=== PATIENT | female | born 1935 | race Caucasian/White ===

== ENCOUNTER 2016-12-29 09:25 | Emergency (ER) | payer OTHER ==
[2016-12-29 09:30] VITALS: BMI 29.9
--- NOTE | 2016-12-29 09:50 | PDOC ---
History of Present Illness - General History Source: Patient Exam Limitations: No Limitations <GomezShmuel whipplean - Last Filed: 12/29/16 16:23> - General History Source: Patient Exam Limitations: No Limitations <Miesha Salazar - Last Filed: 12/29/16 18:38> - General Chief Complaint: Chest Pain Stated Complaint: CHEST PRESSURE, SOB Time Seen by Provider: 12/29/16 09:38 - History of Present Illness Initial Comments: 12/29/16 11:10 The patient is a 81 year old female, with a significant past medical history of hypertension, hyperlipidemia, and GERD, who presents to the emergency department complaining of intermittent chest pain and shortness of breath for several weeks. The patient states her chest has felt heavy, similar to a pressure for the past couple of weeks. She reports associated shortness of breath which is exacerbated with exertion. Patient reports her chest pain and sob is alleviated when sitting down. She reports an associated non productive cough, which is chronic, but has been worsening. 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 She states she has noted her legs are increasingly weak. She denies any diaphoresis, n/v, palpitations, or lower extremity edema. She denies any fever, chills, headache, or dizziness. 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 She denies any recent travel or sick contacts. Allergies: Amlodipine besylate[From Hero]. Ampicillin, Diltiazem, Fluconazole, Hydrochlorothiazide, Latex, Levofloxacin[From Levaquin], Metronidazole, naproxen , nitrofurantoin, olmesartan medoxomil[From Hero], Penicillins, Tetracyclines Past Surgical History: None reported. Social History: Occasional ETOH use. Non smoker. No recreational drug use. PCP: Dr. Nunez Educational Program Assistant: Dr. Hankins (Miesha Salazar) Past History - Past Medical History HTN: Yes Hypercholesterolemia: Yes - Psycho/Social/Smoking Cessation Hx Suicidal Ideation: No Smoking History: Never smoked Hx Alcohol Use: Yes (SOCIAL) Drug/Substance Use Hx: No Substance Use Type: None <Epifanio Dyer - Last Filed: 12/29/16 16:23> <Miesha Salazar - Last Filed: 12/29/16 18:38> - Past Medical History Allergies/Adverse Reactions: Allergies Allergy/AdvReac Type Severity Reaction Status Date / Time amlodipine besylate Allergy Rash Verified 12/29/16 09:31 [From Hero] ampicillin Allergy Rash Verified 12/29/16 09:30 diltiazem Allergy Rash Verified 12/29/16 09:31 fluconazole Allergy Rash Verified 12/29/16 09:32 hydrochlorothiazide Allergy Rash Verified 12/29/16 09:32 latex Allergy Rash Verified 12/29/16 09:33 levofloxacin [From Levaquin] Allergy Rash Verified 12/29/16 09:33 metronidazole Allergy Rash Verified 12/29/16 09:33 naproxen Allergy Rash Verified 12/29/16 09:34 nitrofurantoin Allergy Rash Verified 12/29/16 09:34 olmesartan medoxomil Allergy Rash Verified 12/29/16 09:31 [From Hero] Penicillins Allergy Rash Verified 12/29/16 09:34 Tetracyclines Allergy Rash Verified 12/29/16 09:35 DEMARLO EITHER Allergy Uncoded 12/29/16 09:31 Home Medications: Ambulatory Orders Losartan Potassium 100 mg PO DAILY 12/29/16 Ranitidine [Zantac -] 150 mg PO BID 12/29/16 Review of Systems <Epifanio Dyer - Last Filed: 12/29/16 16:23> - Review of Systems Able to Perform ROS?: Yes <Miesha Salazar - Last Filed: 12/29/16 18:38> - Review of Systems Comments:: 12/29/16 11:10 CONSTITUTIONAL: Yes: +generally weak No reported: Fever, Chills, Diaphoresis, Malaise, Loss of Appetite HEENT: No reported: Rhinorrhea, Nasal Congestion, Throat Pain, Throat Swelling, Difficulty Swallowing, Mouth Swelling, Ear Pain, Eye Pain, Visual Changes CARDIOVASCULAR: Yes: +chest pain No reported: Syncope, Palpitations, Irregular Heart Rate, Lightheadedness, Peripheral Edema RESPIRATORY: Yes: +Cough, +Shortness of Breath, SOB with exertion, +wheezing. No reported: Orthopnea, Stridor, Hemoptysis GASTROINTESTINAL: No reported: Abdominal pain, Abdominal Distension, Nausea, Vomiting, Diarrhea, Constipation, Melena, Hematochezia GENITOURINARY: No reported: Dysuria, Frequency, Urgency, Hesitancy, Flank Pain, Genital Pain MUSCULOSKELETAL: No reported: Myalgia, Arthralgia, Joint Swelling, Back pain, Neck Pain SKIN: No reported: Rash, Itching, Pallor HEMATOLOGIC/IMMUNOLOGIC: No reported: Easy Bleeding, Easy Bruising, Lymphadenopathy, Frequent infections ENDOCRINE: No reported: Unexplained Weight Gain, Unexplained Weight Loss, Heat Intolerance , Cold Intolerance NEUROLOGIC: No reported: Headache, Focal Weakness, Paresthesias, Vertigo, Lightheadedness, Seizure, Mental Status Changes, Incontinence PSYCHIATRIC: No reported: Anxiety, Depression (Miesha Salazar) *Physical Exam <Shmuel Dyeran - Last Filed: 12/29/16 16:23> <Jazmine Salazary - Last Filed: 12/29/16 18:38> - Vital Signs Last Vital Signs Temp Pulse Resp BP Pulse Ox 98.4 F 74 20 146/93 98 12/29/16 09:26 12/29/16 09:26 12/29/16 09:26 12/29/16 09:26 12/29/16 09:43 - Physical Exam Comments: 12/29/16 11:10 GENERAL: The patient is awake, alert, and fully oriented, Nontoxic - in no acute distress. HEAD: Normocephalic, atraumatic. EYES: extraocular movements intact, sclera anicteric, conjunctiva clear. ENT: Normal voice, Moist mucous membranes. NECK: Normal range of motion, supple LUNGS: Breath sounds equal, clear to auscultation bilaterally. No wheezes, no rhonchi, no rales. HEART: Regular rate and rhythm, without murmur, rub or gallop. ABDOMEN: Soft, nontender, normoactive bowel sounds. No guarding, no rebound.No CVA tenderness EXTREMITIES: Normal range of motion, no edema. No clubbing or cyanosis. No cords, erythema, or tenderness. NEUROLOGICAL: No facial assymetry, Normal speech, PSYCH: Normal mood, normal affect. SKIN: Warm, Dry, normal turgor. (Miesha Salazar) Heart Score/ECG Review <Shmuel Dyeran - Last Filed: 12/29/16 16:23> <Miesha Salazar - Last Filed: 12/29/16 18:38> - ECG Impressions Comment:: 12/29/16 10:17 Twelve-lead EKG was performed and reviewed by me. There is normal sinus rhythm with a normal rate. Rate of 71 Right bundle-branch block, left anterior fascicular block q waves in III, avf No old ekgs for comparison 12/29/16 15:41 Twelve-lead EKG was performed and reviewed by me. There is normal sinus rhythm with a normal rate. Rate of 69 Right bundle-branch block, left anterior fascicular block q waves in III, avf Nochanges from previous ekg (Epifanio Dyer) ED Treatment Course - LABORATORY CBC & Chemistry Diagram: 12/29/16 09:53 12/29/16 09:53 <Epifanio Dyer - Last Filed: 12/29/16 16:23> - LABORATORY CBC & Chemistry Diagram: 12/29/16 09:53 12/29/16 09:53 <Miesha Salazar - Last Filed: 12/29/16 18:38> - ADDITIONAL ORDERS Additional order review: Laboratory Results 12/29/16 12/29/16 12/29/16 15:00 10:40 09:53 VBG pH 7.36 POC VBG pCO2 54.1 H POC VBG pO2 23.8 L Mixed VBG HCO3 29.6 H Sodium Potassium Chloride Carbon Dioxide Anion Gap BUN Creatinine Creat Clearance w eGFR Random Glucose Calcium Total Bilirubin AST ALT Alkaline Phosphatase Creatine Kinase 55 Troponin I < 0.02 B-Natriuretic Peptide Total Protein Albumin Urine Color Yellow Urine Appearance Clear Urine pH 6.0 Urine Protein Negative Urine Glucose (UA) Negative Urine Ketones Negative Urine Blood Negative Urine Nitrite Negative Urine Bilirubin Negative Urine Urobilinogen Negative Ur Leukocyte Esterase Negative 12/29/16 12/29/16 09:53 09:53 VBG pH POC VBG pCO2 POC VBG pO2 Mixed VBG HCO3 Sodium 141 Potassium 4.1 Chloride 103 Carbon Dioxide 32 Anion Gap 6 L BUN 19 H D Creatinine 0.7 Creat Clearance w eGFR > 60 Random Glucose 101 D Calcium 9.0 Total Bilirubin 0.5 D AST 14 L ALT 19 D Alkaline Phosphatase 80 Creatine Kinase 60 Troponin I < 0.02 B-Natriuretic Peptide 384.31 Total Protein 6.8 Albumin 3.6 Urine Color Urine Appearance Urine pH Urine Protein Urine Glucose (UA) Urine Ketones Urine Blood Urine Nitrite Urine Bilirubin Urine Urobilinogen Ur Leukocyte Esterase 12/29/16 09:53 RBC 4.84 MCV 85.3 MCHC 33.7 RDW 13.8 MPV 7.9 Neutrophils % 58.5 Lymphocytes % 29.0 Monocytes % 7.5 Eosinophils % 4.2 Basophils % 0.8 - RADIOLOGY Radiograph Interpretation: 12/29/16 18:37 EXAM: CXR INTERPRETED BY: Dr. Joyner REVIEWED BY: Dr. Dyer IMPRESSION: No evidence of CHF, pneumonia, pneumothorax, or pleural effusion. ( Miesha Salazar) Medical Decision Making <Epifanio Dyer - Last Filed: 12/29/16 16:23> <Miesha Salazar - Last Filed: 12/29/16 18:38> - Medical Decision Making 12/29/16 10:09 81y F hx of htn, hl, 'lung scarring' presents with chest pressure/sob for the past few weeks that is worse with exertion. pt does endorse mildlin increased nonproductive cough, no associated fever/chills, abd pain, back pain. on exam pt well appearing, NAD, no leg swelling/calf tenderness. differential includes but not limited to acs, chf, pna will ck cbc, cmp, trops, bnp cxr, ekg will reassess A portion of this note was documented by scribe services under my direction. I have reviewed the details of the note, within reason, and agree with the documentation with the following case summary and management plan written by me 12/29/16 14:41 labs reviewed - unremarkable cxr neg case marnie hankins unable to reach dr. nunez will obtain second troponin if neg will refer pt to cardiology fu 12/29/16 16:23 case marnie nunez agrees with management states pts symptoms are long standing will see pt tomorrow for follow up I discussed the physical exam findings, ancillary test results and final diagnoses with the patient. I answered all of the patient's questions. The patient was satisfied with the care received and felt comfortable with the discharge plan and treatment plan. The patient will call their primary care physician within 24 hours to arrange follow-up and will return to the Emergency Department with any new, persistent or worsening symptoms. (Epifanio Dyer) *DC/Admit/Observation/Transfer - Discharge Dispostion Admit: No <Epifanio Dyer - Last Filed: 12/29/16 16:23> <Miesha Salazar - Last Filed: 12/29/16 18:38> Diagnosis at time of Disposition: Shortness of breath - Discharge Dispostion Disposition: HOME Condition at time of disposition: Improved - Referrals Referrals: Jonathan Gant MD [Staff Physician] - Kathrine Nunez MD [Staff Physician] - - Patient Instructions Printed Discharge Instructions: DI for Atypical Chest Pain Additional Instructions: Return to the emergency department immediately with ANY new, persistent or worsening symptoms including any chest pain, shortness of breath, cough, or other concerns You MUST call and follow up with your doctor tomorrow for further evaluation of your symptoms. Results were discussed with you. Please make sure your doctor reviews the results of your emergency evaluation. Follow up with a redipper within If you had any xrays during your visit, it was read preliminarily by myself, a Radiologist will review it and if there are any additional findings we will call you. - Attestations Scribe Attestion: 12/29/16 11:11 Documentation prepared by Miesha Salazar, acting as medical administrative technician for Epifanio Dyer MD. (Miesha Salazar)
[2016-12-29 10:31] LABS: BASOPHIL 0.8 % (0-2.0); EOSINOPHIL 4.2 % (0-4.5); MCH 28.7 pg (25.7-33.7); MCHC 33.7 g/dl (32.0-36.0); MEAN CELL VOLUME 85.3 fl (80-96); MEAN PLT VOLUME 7.9 fl (7.5-11.1); NEUTROPHILS 58.5 % (42.8-82.8); PLATELET COUNT 248 K/MM3 (134-434); RDW 13.8 % (11.6-15.6); VENOUS PH 7.36 (7.32-7.42); WHITE BLOOD COUNT 7.1 K/mm3 (4.0-10.0)
[2016-12-29 10:32] LABS: VENOUS BLOOD GAS HCO3 29.6 meq/L (19-25)
[2016-12-29 10:53] LABS: ALBUMIN 3.6 g/dl (3.4-5.0); ALK PHOS 80 U/L (45-117); ANION GAP 6 (8-16); BILIRUBIN,TOTAL 0.5 mg/dL (0.2-1.0); CO2 32 mmol/L (21-32); CREATININE 0.7 mg/dL (0.55-1.02); GLUCOSE,RANDOM 101 mg/dL (74-106); SGOT/AST 14 U/L (15-37); SGPT/ALT 19 U/L (12-78); TOT PROT 6.8 g/dl (6.4-8.2)
[2016-12-29 10:54] LABS: URINE APPEARANCE CLEAR; URINE BILIRUBIN NEGATIVE (NEGATIVE); URINE BLOOD NEGATIVE (NEGATIVE); URINE COLOR YELLOW; URINE GLUCOSE (UA) NEGATIVE (NEGATIVE); URINE KETONE NEGATIVE (NEGATIVE); URINE LEUK ESTERASE NEGATIVE (NEGATIVE); URINE NITRITE NEGATIVE (NEGATIVE); URINE PROTEIN NEGATIVE (NEGATIVE); URINE UROBILINOGEN NEGATIVE mg/dL (0.2-1.0)
[2016-12-29 10:55] LABS: TROPONIN I < 0.02 ng/ml (0.00-0.05)
--- NOTE | 2016-12-29 12:46 | EKG ---
Test Reason : Blood Pressure : / mmHG Vent. 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
[2016-12-29 15:51] LABS: TROPONIN I < 0.02 ng/ml (0.00-0.05)
[2016-12-29 18:41] VITALS: BP 128/75; PULSE 66; TEMP 97.8
--- NOTE | 2016-12-30 11:55 | EKG ---
Test Reason : Blood Pressure : / mmHG Vent. 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
== END 2016-12-29 16:22 | disposition home or self-care (01) ==
LOC: JER 09:25
DX: R06.02 Shortness of breath (principal); I10 Essential (primary) hypertension; E78.00 Pure hypercholesterolemia, unspecified; K21.9 Gastro-esophageal reflux disease without esophagitis
CPT/HCPCS: 36415; 71010-TC; 80053; 81003; 82550; 82803; 83880; 84484; 85025; 93005; 93010; 99284-25